=== PATIENT | female | born 1980 | race African-American/Black ===

== ENCOUNTER 2025-03-18 17:28 | Emergency (ER) | payer OTHER, SELFPAY ==
[2025-03-18 17:36] VITALS: BP 181/96
[2025-03-18 17:47] LABS: Glucose - Point of Care 225 mg/dl (70-99)
[2025-03-18 18:07] LABS: Hematocrit 37.5 % (37.0-47.0); Hemoglobin 11.2 g/dL (12.0-16.0); Mean Corp Hgb Conc. 29.9 g/dL (33.0-37.0); Mean Corpuscular Volume 83.7 fL (81.0-99.0); Nucleated Red Blood Cells % 0 %; Platelet Count 263 10^3/uL (130-400); Red Cell Dist. Width 13.9 % (11.5-14.5)
[2025-03-18 18:29] LABS: HCG, Serum Qualitative Screen Negative
[2025-03-18 18:32] LABS: ALT (SGPT) 17 U/L (0-35); AST (SGOT) 15 U/L (14-36); Albumin 3.8 g/dl (3.5-5.0); Alkaline Phosphatase 70 U/L (38-126); Blood Urea Nitrogen 9 mg/dl (7-17); Calcium 9.0 mg/dl (8.4-10.2); Carbon Dioxide 24 mmol/L (22-30); Chloride 108 mmol/L (98-107); Glucose 218 mg/dl (70-99); Potassium 4.2 mmol/L (3.5-5.1); Sodium 137 mmol/L (135-145); Total Protein 7.1 g/dl (6.3-8.2); eGFR > 60.00
[2025-03-18 20:44] VITALS: BP 149/91
--- NOTE | 2025-03-18 20:59 | ED.GENMED ---
History of Present Illness
General
Chief Complaint: Breathing Problem
Source: patient
Exam Limitations: none
Time Seen by Provider: 03/18/25 20:43
Nursing documentation reviewed up to this point in time: agreed with
History of Present Illness
History of Present Illness:
44-year-old female with a past medical history of obesity, insulin-dependent diabetes, hypertension, hyperlipidemia who presents to the emergency department for evaluation of shortness of breath and leg swelling. Patient reports that symptoms
started 3 to 4 days ago and they have been constant since that time and she says worsening. She says that today she had to stop to rest every few steps which prompted her to come to the ER. She has had mild nonproductive cough. She has not noted
any chest pain. Denies any fevers or chills. 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 She says that the past 2
days she has had some loose nonbloody stools. Denies any nausea, vomiting, abdominal pain. She denies any other acute complaints. She is a diabetic reports that her sugars have been running higher than usual recently. She does make note that she
recently drove here 8 hours from [place] and is currently searching for work/housing and living out of her car.
Review of Systems
Review of Systems
All Other Systems: ROS reviewed and negative except as documented in HPI and ROS
Constitutional: Reports fatigue; Denies fever
Respiratory: Reports cough and trouble breathing
Cardiac: Denies chest pain
ABD/GI: Reports diarrhea; Denies abdominal pain, nausea or vomiting
: Denies flank pain
Musculoskeletal: Reports edema; Denies neck pain or back pain
Neurological: Denies dizzy or headache
Phy Exam
Physical Exam
Physical Exam:
General: Awake, alert, oriented x3; no acute distress
Head: Normocephalic, atraumatic
Eyes: Conjunctiva normal, EOMI
Throat: Airway intact, handling secretions
Neck: Trachea midline, supple without meningismus, no JVD noted
Lungs: Clear to auscultation bilaterally, no wheezing, rales, rhonchi; no tachypnea or hypoxia
Heart: Regular rate and rhythm, no murmurs, gallops, or rubs appreciated
Abd: Soft, non distended, nontender
Neuro: Grossly intact
Extremities: Patient has bilateral lower extremity edema left much greater than right with no tenderness or skin changes noted; extremities are warm and well-perfused
Scores
Heart Failure Risk
Heart Failure Risk Score: Not Applicable
Heart Score for Chest Pain Patients
STEMI patient?: Not applicable
PE Wells Score
Symptoms of DVT: Yes
No alternative diagnosis better explains the illness: Yes
Tachycardia with pulse > 100: No
Immobilization (>=3 days) or surgery within previous 4 weeks: No
Prior history of DVT or pulmonary embolism: No
Presence of hemoptysis: No
Presence of malignancy: No
Pulmonary Embolism Risk Score: 6
Probability of PE: Pt is moderate risk
Withdrawal Assessment of Alcohol
Withdrawal Assessment Completed?: Not applicable
Course
Orders/Labs/Results
Orders:
Orders
03/18/25 17:43
Test Result ONCE
03/18/25 17:53
B-Hydroxybutyrate Urgent
CMP [Comprehensive Metabolic Panel] Urgent
HCG, Serum Qualitative Screen Urgent
03/18/25 17:54
Complete Blood Count/With Diff Urgent
03/18/25 20:56
US Periph Venous LOWER Ext Allan Urgent
Comment:
Reason For Exam: b/l leg swelling L>R
03/18/25 20:58
Electrocardiogram (*1) Urgent
Reason for Study: Shortness of Breath
EKG- Treatment ONCE
03/18/25 20:59
CT Chest PE Study Urgent
Comment:
Reason For Exam: shortness of breath, LE swelling, recent trip
03/18/25 21:32
NT-proBNP Urgent
PTT Urgent
Prothrombin Time Urgent
Troponin I Urgent
Abnormal Lab Results
03/18/25 03/18/25 03/18/25
17:45 17:53 17:54
Hgb 11.2 L g/dL
(12.0-16.0)
MCH 25.0 L pg
(27.0-31.0)
MCHC 29.9 L g/dL
(33.0-37.0)
Chloride 108 H mmol/L
(98-107)
Glucose 218 H mg/dl
(70-99)
POC Glucose 225 H mg/dl
(70-99)
03/18/25 17:54
03/18/25 17:53
Vital Signs
Initial and Last Documented VS:
Initial Vital Signs
Temp Pulse Resp BP Pulse Ox
36.9 C 93 16 181/96 98
03/18/25 17:36 03/18/25 17:36 03/18/25 17:36 03/18/25 17:36 03/18/25 17:36
Last Documented Vital Signs
Temp Pulse Resp BP Pulse Ox
36.9 C 93 16 119/91 98
03/18/25 21:00 03/18/25 17:36 03/18/25 17:36 03/18/25 21:00 03/18/25 21:34
MDM/Problems Addressed
Differential Diagnosis Includes:
Shortness of breath: Pneumonia, anemia, CHF, angina, PE, deconditioning
MDM/Problems Addressed:
44-year-old female presents to the ER for evaluation of shortness of breath also having increased swelling in her legs as described above. She did recently drive here from [place] 8 hours. She is hypertensive but has otherwise normal vital
signs. Physical exam is as above. She had lab work sent in triage including a CBC and a CMP which showed no clinically significant abnormalities�she has random glucose of 218 in the setting of known diabetes but no signs of DKA. Her hCG is
negative. Will plan to check an EKG. Will check troponin and proBNP. Will send for ultrasound of the legs as well as CT of the chest to rule out DVT/PE. Monitor closely and reassess after the above.
EKG shows sinus rhythm. Troponin negative. proBNP normal. Ultrasound of the leg shows no DVT. CT of the chest shows no PE or other acute abnormalities. Patient has remained clinically stable throughout ED observation. She has no chest pain to
suggest that these are anginal symptoms. Overall suspect bronchitis given cough and dyspnea likely some element of deconditioning as well. Can cover with azithromycin. No clear indication for hospital admission at this point we will plan for
discharge. Provided follow-up in free clinic. All questions answered.
Chronic conditions affecting care:
Obesity increases PE risk, also has multiple risk factors for heart disease
Acute Exacerbation and/or Progression of Chronic Illness:
Acutely hypertensive
Acute Exacerbation and/or Progression of Chronic Illness: HTN
*Radiology
Radiology exam reviewed: radiology read reviewed
*Pulse Oximetry
SaO2: 98
Oxygen Mode of Delivery: Room air
Patient hypoxic: no (98%)
*Critical Care Note
Total Time (30-74mins, 75-104mins- exclusive of procedures): Not Applicable
Data Reviewed
Source: patient
ED Attending Note
-
Portions of this chart may have been created with voice recognition software.� Occasional wrong word or��sound alike� substitutions may have occurred due to the inherent limitations of voice recognition software.
Discharge Plan
Departure
Patient Disposition: Home (Routine Discharge)
Date of Disposition: 03/18/25
Time of Disposition: 23:30
Patient with high blood pressure during this ER visit?: Yes
Discharge Problem:
Shortness of breath, High blood pressure, High blood sugar
Instructions: Shortness of Breath (Dyspnea) (DC), BLOOD PRESSURE
Prescriptions:
New
azithromycin [Zithromax] 250 mg tablet
250 mg PO DAILY Qty: 6 0RF
Referrals:
[facility] [Outside] - Call in 1-3 days for appt
Activity Restrictions/Additional Instructions:
Thank you for visiting the Emergency Department at [facility].
1. Please schedule a follow up appointment as directed. Call first thing tomorrow morning to make an appointment.
2. If indicated, please take your medications as instructed and indicated on discharge paperwork.
3. If any of your symptoms do not improve, or persist, or become more severe within 6-12 hours, please return to the emergency department for further care.
4. Please return to the emergency department if you develop a headache, neck pain/stiffness, fever greater than 100.4F, chest pain, shortness of breath, persistent nausea, vomiting, slurred speech, difficulty walking, numbness/tingling, weakness,
signs of infection or any other symptoms that are worrisome to you.
Please call [phone] if you have any questions.
Interventions
Interventions:
*Risk Screen - Suicide Last Done: 03/18/25 17:36
*General Assessment Last Done: 03/18/25 21:21
*Neglect/Abuse Screening Last Done: 03/18/25 17:36
*ED- Fall Risk Assessment Last Done: 03/18/25 21:21
*ED COVID-19 Vaccine History Last Done: 03/18/25 21:21
*ED Influenza Vaccine History Last Done: 03/18/25 21:21
ED- Cardiac Assessment Last Done: 03/18/25 21:34
ED- Pulmonary Assessment Last Done: 03/18/25 21:34
Discharge Date and Time
Print Language: [place]
[2025-03-18 21:00] VITALS: BP 119/91
[2025-03-18 21:21] VITALS: BMI 60.8
[2025-03-18 21:48] LABS: APTT 24.0 Sec (23.4-35.0); INR 0.96; PT 13.1 Sec (11.4-14.6)
[2025-03-18 22:03] LABS: Troponin I 0.019 ng/ml
[2025-03-18] MEDS: ZITHROMAX 500 MG PO (23:41)
== END 2025-03-19 00:08 | disposition home or self-care (01) ==
LOC: EMR 17:28
PROVIDERS: Emergency Medicine; EMERGENCY PHYSICIAN Emergency Medicine
DX: R06.02 Shortness of breath (principal); I10 Essential (primary) hypertension; E10.65 Type 1 diabetes mellitus with hyperglycemia; E78.5 Hyperlipidemia, unspecified; E66.9 Obesity, unspecified; Z68.44 Body mass index [BMI] 60.0-69.9, adult; I89.0 Lymphedema, not elsewhere classified; Z59.02 Unsheltered homelessness; Z79.4 Long term (current) use of insulin
CPT/HCPCS: 99284; 71275; 80053; 82010; 82962; 83880; 84484; 84703; 85025; 85610; 85730; 93005; 93970; Q9967